=== PATIENT | female | born 1935 | race Caucasian/White ===

== ENCOUNTER 2019-03-19 14:26 | Inpatient (IN) ==
[2019-03-19] MEDS ORDERED: COLACE PO PRN (15:44)
[2019-03-19] MEDS ORDERED: NS 1,000 ML ONE (15:54)
[2019-03-19 16:02] LABS: URINE SOURCE CLEAN CATCH
--- NOTE | 2019-03-19 16:06 | Diag Imaging Result Doc PS360 ---
CHEST-PORTABLE - 03/19/2019 INDICATION: Pneumonia COMPARISON: 12/21/2018 FINDINGS: There is significant infiltrate in the right middle lobe. There is stable cardiomegaly. Pulmonary vascularity is top normal. No pneumothorax or pleural effusion. IMPRESSION: Right middle lobe pneumonia. Cardiomegaly. Electronically signed by Mikael Vigil 03/19/2019 4:03 PM
[2019-03-19 16:09] LABS: BILIRUBIN URINE NEGATIVE (NEGATIVE); BLOOD URINE NEGATIVE (NEGATIVE); COLOR YELLOW; GLUCOSE URINE NEGATIVE (NEGATIVE); KETONE URINE NEGATIVE (NEGATIVE); LEUKOCYTES URINE NEGATIVE (NEGATIVE); NITRITE URINE NEGATIVE (NEGATIVE); PROTEIN URINE 30 mg/dL (NEGATIVE); SP GRAVITY URINE 1.016; TURBIDITY URINE CLEAR (CLEAR); UROBILINOGEN URINE NORMAL (NORMAL)
[2019-03-19 16:10] LABS: UR EPITHELIAL CELLS <10 /HPF (<10); URINE BACTERIA NEGATIVE /HPF; URINE RBC <10 /HPF (<10); URINE WBC <10 /HPF (<10)
[2019-03-19] MEDS: ATROVENT NEB INH SCH ×3 (16:20→23:35)
[2019-03-19] MEDS: ALBUTEROL NEB INH SCH ×3 (16:20→23:35)
[2019-03-19 16:47] LABS: BASO# 0.02 X1000 (0.0-0.2); BASO% 0.1 % (0.0-0.8); EOS# 0.14 X1000 (0.0-0.7); EOS% 0.6 % (0.0-10.0); HEMATOCRIT 37.4 % (37.0-47.0); HEMOGLOBIN 11.3 g/dL (12.0-16.0); IMM GRAN# 0.09 X1000 (0.0-0.04); IMM GRAN% 0.4 % (0.0-0.5); LYMPH# 2.13 X1000 (1.2-3.4); LYMPH% 9.5 % (20.5-51.1); MCH 28.9 PG (27-31); MCHC 30.2 g/dL (33-37); MCV 95.7 FL (81-99); MONO% 11.2 % (1.7-9.3); MPV 12.3 FL (7.4-10.4); NEUT# 17.54 X1000 (1.4-6.5); NEUT% 78.2 % (42.2-75.2); PLT 235 X1000 (130-400); RBC 3.91 XMIL (4.2-5.4); RDW 12.8 % (11.5-14.5); WBC 22.42 X1000 (4.8-10.8)
[2019-03-19 17:02] LABS: ALB/GLOB RATIO 1.3; CREATININE 1.8 mg/dL (0.5-0.9); POTASSIUM 4.1 mmol/L (3.5-5.1); TOTAL BILIRUBIN 0.6 mg/dL (0.20-1.00)
[2019-03-19] MEDS: ZOSYN 3.375 GM in NS 50 ML IV SCH ×2 (17:09→22:29)
[2019-03-19] MEDS: NS 1,000 ML IV SCH (17:09)
[2019-03-19 17:10] LABS: BANDS 2 % (0-1); LYMPHS 18 % (21-51); MONO 4 % (1-9); SEGS 76 % (42-75)
[2019-03-19 17:11] LABS: LARGE PLATELETS 1+
--- NOTE | 2019-03-19 17:53 | EKG Report ---
Test Performed on : 03/19/2019 5:43:27 PM Test Reason : baseline EKG Blood Pressure : / mmHG Vent. Rate : 079 BPM Atrial Rate : 079 BPM P-R Int : 198 ms QRS Dur : 128 ms QT Int : 414 ms P-R-T Axes : 033 -33 -04 degrees QTc Int : 474 ms Normal sinus rhythm. Left axis deviation Right bundle branch block Minimal voltage criteria for LVH, may be normal variant Possible Lateral infarct , age undetermined Abnormal ECG When compared with ECG of 15-OCT-2017 13:45, Borderline criteria for Lateral infarct are now present No significant change was found Unconfirmed Result
[2019-03-19] MEDS: LEVAQUIN 500 MG/D5W 500 MG/100 ML IVPB IV SCH (18:03)
--- NOTE | 2019-03-19 21:05 | HISTORY AND PHYSICAL ---
PRIMARY CARE PHYSICIAN: Dr. Jono Gannon. CHIEF COMPLAINT: Cough, congestion, "I feel so bad". HISTORY OF PRESENT ILLNESS: An 84-year-old white female with a very complicated past medical history as noted presents for evaluation of above-mentioned symptoms. Current history of present illness began approximately 48 hours ago. At that time, patient developed acute onset diffuse myalgias and right-sided chest discomfort. The patient attempted to treat this symptomatically while at home, although unsuccessfully. Over the course of the last 48 hours, patient has developed profound weakness, shortness of breath above her baseline, cough productive of a purulent sputum, wheezing, and intermittent diaphoresis. She denies overt fevers, chills, dysuria, hematuria, pyuria, change in bowel movements, or sick contacts. P.o. intake has decreased. Because of her progressive symptoms, patient presented to my office for further evaluation and management. Upon arrival, white count was noted to be grossly elevated. Pulmonary examination suggested significant rhonchi in the right lower and middle lung [place]. The patient was admitted for full evaluation and management of presumed underlying pneumonia. Of note, patient states she has had increasing dysphagia over the course of the last couple weeks placing her at risk for aspiration. She denies any odynophagia, nausea, vomiting, hematochezia, or melena. PAST MEDICAL HISTORY: 1. History of multiple actinic keratoses and seborrheic keratoses. 2. Allergic rhinitis. 3. Chronic anemia. 4. History of atypical chest pain with negative evaluation in 2009. 5. Fibrocystic breast disease. 6. Right bundle branch block. 7. Status post left-sided cataract removal in 2012 and right--sided cataract removal in 2016. 8. History of a small cerebral aneurysm diagnosed in 2013. No surgical intervention has been recommended to date. 9. Chronic obstructive pulmonary disease. 10. Diverticulosis. 11. Constipation. 12. Depression. 13. History of diffuse osteoarthritis. 14. Reflux disease. 15. Hypertension. 16. Hypertriglyceridemia. 17. Hyperlipidemia. 18. Chronic hypoxia requiring nocturnal oxygen at 2 L. 19. Impaired fasting glucose. 20. History of menorrhagia status post SCOTT in her early 30s. 21. Osteopenia. 22. Postmenopausal state. 23. 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 24. History of hypothyroidism. 25. History of chronic renal disease with creatinine ranging between 1.2 and 1.5. 26. Restless legs syndrome. 27. Dementia. 28. Insomnia. 29. History of headaches . 30. History of a lumbar compression fracture status post kyphoplasty in 2008. CURRENT MEDICATIONS: 1. Abilify 2 mg daily. 2. Advair 250/50 twice daily. 3. Atorvastatin 40 mg at bedtime. 4. Azelastine 0.1% nasal solution twice daily. 5. Clonidine 0.1 mg 3 times daily as needed for systolic blood pressure greater than 160. 6. Colchicine 0.6 mg daily. 7. Coreg 12.5 mg daily. 8. Diovan 160 mg twice daily. 9. Colace 100 mg twice daily. 10. Duloxetine 60 mg daily. 11. Exelon patch 4.6 mg per 24 hours daily. 12. Fluticasone nasal spray 2 sprays each nostril daily as needed. 13. Folic acid 1 mg every other day. 14. Lasix 40 mg 1 to 2 tablets daily as needed. 15. Gabapentin 300 mg at bedtime. 16. Hydralazine 25 mg twice daily. 17. DuoNeb 3 times daily. 18. Klonopin 0.5 mg twice daily. 19. Levothyroxine 50 mcg daily. 20. Methocarbamol 750 mg 1/2 to 1 tablet 3 times daily as needed. 21. Mirapex 0.125 mg at bedtime. 22. Mirtazapine 30 mg at bedtime. 23. Namenda 10 mg twice daily. 24. Omeprazole 40 mg daily . 25. Percocet 10/325 one tablet 3 times daily. 26. ProAir HFA 1-2 puffs every 4 to 6 hours as needed. 27. Singulair 10 mg at bedtime. 28. Trazodone 100 mg at bedtime. 29. Xanax 0.25 mg 2 tablets twice daily. 30. Xarelto 20 mg daily with supper. ALLERGIES: Patient states she is allergic to Actonel which causes reflux, amlodipine/benazepril which causes edema, clonidine at high doses causes dry mouth, morphine which causes delirium, Novocain which causes tachycardia, simvastatin which causes myalgias, sulfa which causes a skin rash/hives. SOCIAL HISTORY: Patient denies tobacco, alcohol or illicit drug use. 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 She enjoys knitting and cross stitching. She exercises by walking. FAMILY HISTORY: Father passed at age 70 secondary to complications from an acute myocardial infarction. Patient's mother passed at age 81 secondary to complications of a stroke. REVIEW OF SYSTEMS: A 12 point review of systems was performed. Pertinent positives and negatives in history present illness. PHYSICAL EXAMINATION: VITAL SIGNS: Temperature 98 degrees, heart rate 79, respirations 20, blood pressure is 100/47. GENERAL: Acutely ill but no significant distress. HEENT: Normocephalic, atraumatic. Pupils equal, round, react to light. Extraocular muscles intact. Sclerae anicteric. [place] conjunctivae. Oral and nasopharynx clear without exudate. NECK: Supple. No lymphadenopathy. No thyromegaly. No bruits auscultated. CARDIOVASCULAR: Regular rate and rhythm. No significant murmurs, rubs, or gallops. PULMONARY: Rhonchi right mid and lower lung [place], occasional wheeze bilaterally. ABDOMEN: Soft, nontender, nondistended. Positive bowel sounds. EXTREMITIES: Moves all extremities well. No significant clubbing, cyanosis or edema. NEUROLOGIC: Cranial nerves 2 through 12 grossly intact. Motor and sensory grossly intact. PSYCHOLOGIC: Appropriate. LABORATORY DATA: White blood cell count 22.42, hemoglobin 11.3, hematocrit 37.4, platelet count 235,000. Sodium 135, potassium 4.1, chloride 94, bicarb 24, BUN 26, creatinine 1.8, glucose 112, calcium 9.0, total bilirubin 0.60, total protein 7.0, albumin 4.0, alkaline phosphatase 169, AST 25, ALT 13, CK total 55, troponin less than 0.010. Urinalysis revealed 30 protein. Chest x-ray reveals right middle lobe pneumonia, cardiomegaly. ASSESSMENT AND PLAN: An 84-year-old white female with a very complicated past medical history as noted presents for evaluation for profound fatigue, cough and congestion. Evaluation has revealed a right middle lobe pneumonia with associated hypotension and leukocytosis suggesting sepsis. The patient will be admitted to the CICU with close observation and aggressive management. 1. Admit PVC unit. 2. Right middle lobe pneumonia-the patient has manifest evidence of sepsis with hypotension and elevated white blood cell count. Blood cultures and sputum cultures will be drawn. We will start patient on IV fluids. We will hold all antihypertensive agents. We will initiate Zosyn and levofloxacin therapy. We will add albuterol/Atrovent every 4 hours while awake. We will follow patient's clinical course very closely. 3. Hypotension-this is most consistent with underlying sepsis associated with pneumonia. As above, blood cultures and sputum cultures will be drawn. We will start aggressive but cautious hydration. At this point, I do not feel pressor intervention is necessary. 4. Leukocytosis-as above, this is likely associated with underlying pneumonia with associated sepsis. We will treat as described above. 5. Dysphagia-this raises concern for possible aspiration. The patient will be placed on aspiration precautions. We will cover for anaerobe cover with Zosyn for possible anaerobic bacteria in the setting of aspiration. 6. Profound weakness-this is likely secondary to above. We will treat aggressively as noted. 7. Depression/dementia-patient is on a host of medications. We will continue each of these, however benzodiazepines will be held for systolic blood pressure less than 120. This will be followed. 8. Diffuse arthritis-patient is treated with Percocet as an outpatient. This will be continued, however also held for systolic blood pressure less than 120. 9. History of hypertension-all antihypertensive agents will be held for now. We will resume these once able. 10. Hyperlipidemia/hypertriglyceridemia-we will continue patient on atorvastatin therapy. 11. Chronic hypoxia-the patient is treated with oxygen 2 L at night. We will place patient on oxygen per protocol. 12. Hypercoagulable state-as above, patient has a history of a pulmonary thromboembolism and a thrombin 3 deficiency. Patient is treated with lifelong Xarelto. We will continue this. 13. Hypothyroidism-we will continue patient on replacement. 14. Acute on chronic kidney disease-baseline creatinine between 1.2 and 1.5. Creatinine today is 1.8. We will start patient on IV as noted. 15. Fluid, electrolytes, nutrition. We will monitor electrolytes. Normal saline at 50 mL an hour. Cardiac prudent diet. 16. Prophylaxis. Patient will be continued on Xarelto therapy. cc: Jono Gannon MD MTDD
[2019-03-19] MEDS: KLONOPIN PO SCH (21:08)
[2019-03-19] MEDS: ASTELIN NASAL SPRAY NAS SCH (21:08)
[2019-03-19] MEDS: NAMENDA PO SCH (21:08)
[2019-03-19] MEDS: REMERON PO SCH (21:08)
[2019-03-19] MEDS: ABILIFY PO SCH (21:08)
[2019-03-19] MEDS: LIPITOR PO SCH (21:08)
[2019-03-19] MEDS: NEURONTIN PO SCH (21:08)
[2019-03-19] MEDS: XANAX PO SCH (21:08)
[2019-03-19] MEDS: PERICOLACE PO SCH (21:08)
[2019-03-19] MEDS: MIRAPEX PO SCH (21:22)
[2019-03-20] MEDS: ATROVENT NEB INH SCH ×6 (03:35→23:00)
[2019-03-20] MEDS: ALBUTEROL NEB INH SCH ×6 (03:35→23:00)
[2019-03-20] MEDS: ZOSYN 3.375 GM in NS 50 ML IV SCH ×4 (04:37→22:05)
[2019-03-20] MEDS: PRILOSEC PO SCH (05:59)
[2019-03-20] MEDS: SYNTHROID PO SCH (05:59)
[2019-03-20] MEDS ORDERED: LEVOTHYROXINE SODIUM 50 MCG PO SCH (09:00)
[2019-03-20] MEDS ORDERED: NON-FORMULARY MED (Omeprazole 40 MG) PO SCH (09:00)
[2019-03-20] MEDS: XANAX PO SCH ×2 (09:11→22:12)
[2019-03-20] MEDS: KLONOPIN PO SCH ×2 (09:12→22:12)
[2019-03-20] MEDS: PERICOLACE PO SCH ×2 (09:14→22:03)
[2019-03-20] MEDS: CYMBALTA PO SCH (09:14)
[2019-03-20] MEDS: COLCRYS PO SCH (09:14)
[2019-03-20] MEDS: EXELON 4.6MG/24HRS TD SCH (09:14)
[2019-03-20] MEDS: NAMENDA PO SCH ×2 (09:14→22:02)
[2019-03-20] MEDS: ASTELIN NASAL SPRAY NAS SCH ×2 (09:15→23:45)
[2019-03-20] MEDS: FLONASE NAS SCH (09:15)
[2019-03-20] MEDS: COREG PO SCH (09:15)
[2019-03-20] MEDS: SINGULAIR PO SCH (09:15)
[2019-03-20] MEDS: ROBAXIN PO PRN (09:51)
[2019-03-20] MEDS: OXY IR PO PRN ×2 (10:25→19:25)
[2019-03-20] MEDS: NS 1,000 ML IV SCH ×2 (11:51→17:18)
--- NOTE | 2019-03-20 14:25 | PROGRESS NOTE ---
DATE: 03/20/2019 SUBJECTIVE: The patient was admitted yesterday with a right middle lobe pneumonia with associated sepsis. The patient was started on IV fluids and broad-spectrum antibiotics, and bronchodilators. Overnight, patient did reasonably well. The patient's blood pressure has slowly improved. Heart rate is slightly elevated this morning. Upon my arrival, patient was sitting upright in bed. Patient states that clinically, she is improved from yesterday. She continues to have a cough productive of a purulent sputum, mild shortness of breath, and some wheezing, however she does note a decrease in the severity from yesterday. She has had a low-grade temp of 99.0 degrees, but denies chills, nausea, vomiting, or chest discomfort. OBJECTIVE: T-max 99.0 degrees, heart rate 79 to 106, respirations 14 to 24, blood pressure, 96 to 127 over 47 to 59.General: Elderly, no acute distress. Cardiovascular: Slightly tachycardic. Regular rhythm. No significant murmurs, rubs, or gallops. Pulmonary: Crackles and rhonchi bilaterally, slightly improved from yesterday. Abdomen: Soft, nontender, nondistended. Positive bowel sounds. Extremities: Moves all extremities well. No significant clubbing, cyanosis, or edema. Dermatologic: Evaluation reveals no evidence of rash. LABORATORY DATA: None. ASSESSMENT AND PLAN: 1. Right middle lobe pneumonia with associated sepsis-blood cultures and sputum cultures have been drawn. The patient is being treated with IV fluids and broad-spectrum antibiotics. Overall, patient's condition is improved from yesterday. We will continue her current regimen including bronchodilators. We will encourage incentive spirometry and aspiration precautions. We will follow up sputum and blood cultures once available. 2. Hypotension-as above, this is likely a consequence of patient's pneumonia with associated sepsis. With IV fluids, patient has achieved stabilization. We will continue to hold antihypertensive agents with the exception of Coreg. 3. Leukocytosis-as above, this also is likely secondary to underlying pneumonia with associated sepsis. We will continue aggressive management as above. 4. Acute on chronic kidney disease-the patient's creatinine yesterday was 1.8, above her baseline of 1.2 to 1.5. We will continue IV fluids. We will recheck labs in the morning. 5. Dysphagia-patient has had increasing symptoms over the course of the last 2 weeks. We will continue aspiration precautions. We will remain aware. This puts patient at risk for aspiration pneumonia. We will continue IV antibiotic coverage with Zosyn for possible anaerobic bacteria. 6. Profound weakness-the patient does appear to show mild improvement today. We will encourage out of bed for all meals. We will consider whether physical therapy is necessary in the next several days. 7. Depression/anxiety-we will continue patient's home medical regimen. 8. Diffuse arthritis-patient is treated with Percocet as an outpatient. We will continue this, however we will hold for systolic blood pressure less than 120. 9. Hyperlipidemia/hypertriglyceridemia-we will continue patient's home regimen. 10. Hypercoagulable state-we will continue patient on Xarelto therapy. 11. Hypothyroidism-we will continue replacement. 12. Disposition-at this point, patient continues to require halfway care in a hospital setting. We will plan discharge home once appropriate. cc: Jono Gannon MD
[2019-03-20] MEDS: XARELTO PO SCH (17:18)
[2019-03-20] MEDS: LEVAQUIN 500 MG/D5W 500 MG/100 ML IVPB IV SCH (17:18)
[2019-03-20] MEDS: REMERON PO SCH (22:02)
[2019-03-20] MEDS: NEURONTIN PO SCH (22:03)
[2019-03-20] MEDS: ABILIFY PO SCH (22:03)
[2019-03-20] MEDS: MIRAPEX PO SCH (22:03)
[2019-03-20] MEDS: LIPITOR PO SCH (23:47)
[2019-03-21] MEDS: ALBUTEROL NEB INH SCH ×6 (03:48→22:32)
[2019-03-21] MEDS: ATROVENT NEB INH SCH ×6 (03:48→22:32)
[2019-03-21] MEDS: ZOSYN 3.375 GM in NS 50 ML IV SCH ×4 (05:01→22:25)
[2019-03-21] MEDS: SYNTHROID PO SCH ×2 (05:43→06:12)
[2019-03-21] MEDS: PRILOSEC PO SCH ×2 (05:43→06:11)
[2019-03-21 06:20] LABS: BASO# 0.01 X1000 (0.0-0.2); BASO% 0.1 % (0.0-0.8); EOS# 0.28 X1000 (0.0-0.7); EOS% 2.8 % (0.0-10.0); HEMATOCRIT 32.2 % (37.0-47.0); HEMOGLOBIN 9.6 g/dL (12.0-16.0); IMM GRAN# 0.04 X1000 (0.0-0.04); IMM GRAN% 0.4 % (0.0-0.5); LYMPH# 1.84 X1000 (1.2-3.4); LYMPH% 18.2 % (20.5-51.1); MCH 28.6 PG (27-31); MCHC 29.8 g/dL (33-37); MCV 95.8 FL (81-99); MONO# 1.19 X1000 (0.11-0.59); MONO% 11.8 % (1.7-9.3); MPV 11.7 FL (7.4-10.4); NEUT# 6.73 X1000 (1.4-6.5); NEUT% 66.7 % (42.2-75.2); PLT 211 X1000 (130-400); RBC 3.36 XMIL (4.2-5.4); RDW 12.8 % (11.5-14.5); WBC 10.09 X1000 (4.8-10.8)
--- NOTE | 2019-03-21 06:39 | EKG Report ---
Test Performed on : 03/21/2019 06:26:05 AM Test Reason : Pneumonia/ tachycardia Blood Pressure : / mmHG Vent. Rate : 082 BPM Atrial Rate : 082 BPM P-R Int : 192 ms QRS Dur : 122 ms QT Int : 400 ms P-R-T Axes : 020 -34 -11 degrees QTc Int : 467 ms Normal sinus rhythm. Left axis deviation Right bundle branch block Inferior infarct , age undetermined Abnormal ECG When compared with ECG of 19-MAR-2019 17:43, Borderline criteria for Lateral infarct are no longer present No significant change was found Unconfirmed Result
[2019-03-21 06:45] LABS: ALB/GLOB RATIO 0.8; ALBUMIN 3.1 g/dL (3.5-5.0); CREATININE 1.4 mg/dL (0.5-0.9); POTASSIUM 3.9 mmol/L (3.5-5.1); TOTAL BILIRUBIN 0.44 mg/dL (0.20-1.00); TOTAL PROTEIN 6.8 g/dL (6.3-8.3)
--- NOTE | 2019-03-21 08:10 | Diag Imaging Result Doc PS360 ---
EXAM: CHEST-2 VIEWS HISTORY: pneumonia TECHNIQUE: Two views COMPARISON: 03/19/2019 FINDINGS: The lungs are hyperexpanded. There is atelectasis and infiltrates in the right lung base. Small amount of atelectasis in the left base. Heart is mildly enlarged. No pulmonary edema. Prominent atherosclerosis. Tiny right pleural effusion. IMPRESSION: Mild worsening in the right middle lobe infiltrate and basilar atelectasis Electronically signed by Josue Mcneill 03/21/2019 8:07 AM
[2019-03-21] MEDS: SINGULAIR PO SCH (09:33)
[2019-03-21] MEDS: COLCRYS PO SCH (09:33)
[2019-03-21] MEDS: XANAX PO SCH ×2 (09:33→21:08)
[2019-03-21] MEDS: CYMBALTA PO SCH (09:34)
[2019-03-21] MEDS: COREG PO SCH (09:34)
[2019-03-21] MEDS: NAMENDA PO SCH ×2 (09:34→21:08)
[2019-03-21] MEDS: KLONOPIN PO SCH ×2 (09:35→21:07)
[2019-03-21] MEDS: PERICOLACE PO SCH ×2 (09:35→21:07)
[2019-03-21] MEDS: ASTELIN NASAL SPRAY NAS SCH ×2 (09:35→21:08)
[2019-03-21] MEDS: EXELON 4.6MG/24HRS TD SCH (09:35)
[2019-03-21] MEDS: FLONASE NAS SCH (09:36)
--- NOTE | 2019-03-21 09:59 | PROGRESS NOTE ---
DATE: 03/21/2019 SUBJECTIVE: Over the course of the last 24 hours, patient states she has done reasonably well. Energy level is improving. Cough and congestion are decreasing. Thus far, she has tolerated antibiotics and routine breathing treatments well. This morning, patient is sitting upright in her chair eating breakfast. She continues to require oxygen supplementation. She denies fevers, chills, nausea, vomiting. Right-sided chest discomfort is improving. OBJECTIVE: Vital Signs: T-max 99.9 degrees, heart rate 81 to 106, respirations 17 to 27, blood pressure 105 to 154 over 48 to 96. General: No acute distress. Cardiovascular: Regular rate and rhythm. No significant murmurs, rubs, or gallops. Pulmonary: Wheezing bilaterally, improved from previous. Rhonchi at the right base, slightly improved. Adequate air movement. Abdomen: Soft, nontender, nondistended. Positive bowel sounds. Extremities: Moves all extremities well. No significant clubbing or cyanosis. Trace lower extremity edema bilaterally. Dermatologic: Evaluation reveals no evidence of rash. LABORATORY DATA: White blood cell count 10.09, hemoglobin 9.6, hematocrit 32.2, platelet counts 211,000. Sodium 135, potassium 3.9, chloride 98, bicarb 23, BUN 20, creatinine 1.4, glucose 110, calcium 7.7, total bilirubin 0.44, total protein 6.8, albumin 3.1, alkaline phosphatase 149, AST 31, ALT 15. Chest x-ray reveals mild worsening in the right middle lobe infiltrate and basilar atelectasis. EKG this morning reveals no significant change from previous. ASSESSMENT AND PLAN: 1. Right middle lobe pneumonia with associated sepsis. Blood cultures thus far are negative. Sputum culture requires more incubation. As she is clinically improving, we will continue her current medical regimen including Zosyn, Levaquin, and bronchodilators. We will encourage incentive spirometry and aspiration precautions. While chest x-ray suggests progression, patient is clinically improving. We will follow this closely. 2. Hypotension, secondary to underlying sepsis. Patient's blood pressure has responded nicely with IV fluids and treatment as above. We will continue to follow this clinically as well. At this point, we will hold off on resuming her home medications, but may be able to do this within the next 24 hours. 3. Leukocytosis, secondary to underlying sepsis. White blood cell count has normalized. 4. Acute on chronic kidney disease. Patient's creatinine has improved from 1.8 to 1.4 approximately her baseline. As she is tolerating liquids, we will discontinue IV fluids. We will encourage hydration. 5. Dysphagia. As noted on her history and physical examination, she noted increasing symptoms over a 2 week period of time. This morning, she states she is doing reasonably well. We will continue to follow this and determine if Gastroenterology consultation is necessary as an outpatient. We will continue to encourage aspiration precautions. 6. Profound weakness. The patient continues to show improvement. She has been out of bed for all meals. We will consider physical therapy consultation in the morning depending on her progress. 7. Depression/anxiety. Symptoms are reasonably controlled with her home regimen. 8. Diffuse arthritis. The patient has continued her home medical regimen. Symptoms are controlled. 9. Hyperlipidemia/hypertriglyceridemia/hypothyroidism. We will continue patient on her home medications. 10. Hypercoagulable state. the patient has been continued on Xarelto therapy. 11. Disposition. At this point, patient continues to require [facility] care in a hospital setting. We will plan discharge home once appropriate. cc: Jono Gannon MD
[2019-03-21 13:23] LABS: CALCIUM 10.1 mg/dL (8.8-10.2)
[2019-03-21] MEDS: OXY IR PO PRN ×2 (15:31→23:55)
[2019-03-21] MEDS: XARELTO PO SCH (16:23)
[2019-03-21] MEDS: LEVAQUIN 500 MG/D5W 500 MG/100 ML IVPB IV SCH ×2 (16:24→17:50)
[2019-03-21] MEDS: ROBAXIN PO PRN ×2 (17:58→23:56)
[2019-03-21] MEDS: ABILIFY PO SCH (21:07)
[2019-03-21] MEDS: REMERON PO SCH (21:07)
[2019-03-21] MEDS: LIPITOR PO SCH (21:08)
[2019-03-21] MEDS: MIRAPEX PO SCH (21:08)
[2019-03-21] MEDS: NEURONTIN PO SCH (21:08)
[2019-03-22] MEDS: ATROVENT NEB INH SCH ×6 (03:30→23:08)
[2019-03-22] MEDS: ALBUTEROL NEB INH SCH ×6 (03:30→23:08)
[2019-03-22] MEDS: ZOSYN 3.375 GM in NS 50 ML IV SCH (04:55)
[2019-03-22] MEDS: PRILOSEC PO SCH (06:31)
[2019-03-22] MEDS: SYNTHROID PO SCH (06:32)
[2019-03-22] MEDS: ASTELIN NASAL SPRAY NAS SCH ×2 (09:32→20:00)
[2019-03-22] MEDS: FLONASE NAS SCH (09:33)
[2019-03-22] MEDS: MAXIPIME 2 GM in NS 100 ML IV SCH ×2 (09:34→19:58)
[2019-03-22] MEDS: COLCRYS PO SCH (09:35)
[2019-03-22] MEDS: CYMBALTA PO SCH (09:35)
[2019-03-22] MEDS: KLONOPIN PO SCH ×2 (09:35→19:59)
[2019-03-22] MEDS: COREG PO SCH (09:35)
[2019-03-22] MEDS: PERICOLACE PO SCH ×2 (09:35→19:59)
[2019-03-22] MEDS: NAMENDA PO SCH ×2 (09:35→19:59)
[2019-03-22] MEDS: XANAX PO SCH ×2 (09:35→19:59)
[2019-03-22] MEDS: SINGULAIR PO SCH (09:35)
[2019-03-22] MEDS: EXELON 4.6MG/24HRS TD SCH (09:35)
--- NOTE | 2019-03-22 12:29 | INFECTIOUS DISEASE CONSULT REP ---
DATE: 03/22/2019 CONCLUSION: The patient has a right middle lobe pneumonia as seen on chest x- ray. Sputum from the patient grew Pseudomonas aeruginosa, susceptible to all antibiotics, except Levaquin. RECOMMENDATIONS: I have switched the patient from Zosyn to cefepime at a dose of 2 grams IV every 12 hours. If her GFR gets to be above 50, then the dose of cefepime should be increased to 2 grams IV every 8 hours. I am going to give the patient an appointment for my office in 2 weeks, at which time the patient will be examined, and also a repeat chest x-ray will be done. I ordered a PICC and will hold 1 dose Xarelto before the PICC is inserted. Also I consulted Social Service to set up home IV cefepime. Will check patient's immunoglobulin levels. DISCUSSION: The patient tells me that approximately 3 to 4 days ago, she became weak. She started coughing and produced a yellow and brown sputum. She also had right- sided pleuritic chest pain. She did not have any shaking chills, and she does not remember having any fever. The patient's chest x-ray shows a right lung pneumonia. The CBC shows a white count of 10,090, hemoglobin is 9.6, platelet count 211,000. Creatinine is 1.4. GFR is 36. Blood cultures are negative. Swab for influenza is negative. PAST MEDICAL HISTORY/REVIEW OF SYSTEMS: Eyes and Ears: The patient has decreased vision and hearing. Neck: No stiffness. Respiratory: See present illness. Cardiac: She only has had right-sided pleuritic chest pain, but no other chest pain. GI: No nausea, vomiting, or diarrhea. : No dysuria or flank pain. Bones/Joints/Muscles: She is not complaining of any joint pain or myalgias. Neurologic: No seizures. The patient does say she has a decrease in her memory. 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 She has had a hysterectomy. PREVIOUS HOSPITALIZATIONS AND OPERATIONS: She has had 2 labor and deliveries, a hysterectomy, bilateral total knee arthroplasties. She has had surgery on both right and left ankles, and metal was placed in the joints. The patient did have a laminectomy. She had a lumbar compression fracture, which was treated with kyphoplasty. She has had cataract surgery. MEDICAL DISEASES: Positive for actinic keratoses and subareolar keratoses, allergic rhinitis, chronic anemia, fibrocystic breast disease, right bundle-branch block, cataracts, chronic obstructive pulmonary disease, diverticulosis, constipation, depression, diffuse osteoarthritis, gastroesophageal reflux disease, hypertension, hypertriglyceridemia, hyperlipidemia, chronic hypoxia, osteopenia, pulmonary thromboembolism, hypothyroidism, chronic renal disease, restless legs syndrome, and dementia. MEDICATIONS: Medicines taken at home include Abilify, Advair, atorvastatin, clonidine, colchicine, Coreg, Diovan, Colace, duloxetine, Exelon patch, Lasix, gabapentin, hydralazine, Klonopin, Synthroid, methocarbamol, Mirapex, Namenda, omeprazole, Percocet, Singulair, trazodone, Xanax, and Xarelto. ALLERGIES: The patient has drug allergies to Actonel, amlodipine/benazepril, clonidine, morphine, simvastatin, and sulfa. [place]IAL HISTORY[place] . She lives with her daughter. There are 2 dogs that live outside. She does not smoke cigarettes, drink alcoholic beverages, or abuse drugs. PHYSICAL EXAMINATION: Vital Signs: Temperature is 98 degrees, pulse 83, respirations 20, blood pressure 120/60. The patient weighs 167 pounds. She is 4 feet tall. General: This is an obese, elderly female. She is in no acute distress. HEENT: She can hear my spoken words and see near objects. I did not notice any white patches in her mouth. Neck: She moved her neck without pain. Thorax: She has dorsal kyphosis. Lungs: There were bilateral wheezes. I did not hear rales or rhonchi. Cardiovascular: Heart rate was regular. Abdomen: Soft and nontender. Neurologic: The patient is alert. She can move her extremities. She does not have a tremor. Her memory, as regarding her medical history, is decreased. There is no tremor. Integument: No rash noted. Thank you for the consult. cc: MD Jono Martinez MD MTDD
[2019-03-22 12:41] LABS: INR 1.38; PROTIME 17.2 Seconds (11.0-16.0)
[2019-03-22] MEDS: OXY IR PO PRN ×3 (13:59→23:48)
[2019-03-22] MEDS: ROBAXIN PO PRN (14:00)
[2019-03-22] MEDS: NEURONTIN PO SCH (19:59)
[2019-03-22] MEDS: LIPITOR PO SCH (19:59)
[2019-03-22] MEDS: REMERON PO SCH (19:59)
[2019-03-22] MEDS: ABILIFY PO SCH (19:59)
[2019-03-22] MEDS: MIRAPEX PO SCH (20:00)
--- NOTE | 2019-03-22 20:12 | PROGRESS NOTE ---
DATE: 03/22/2019 SUBJECTIVE: Upon my arrival this morning, the patient was in the restroom. Per report, she had a restful evening. Physical therapy was ordered. Throughout the day today, patient states she did quite well. She walked with physical therapy without incident. This evening, patient is sitting upright in her chair. She states she is ready to go home. A PICC line placement has been scheduled for tomorrow. IV antibiotics for home have been arranged. She denies fevers, chills, nausea, vomiting, or chest discomfort. Her p.o. intake is adequate. OBJECTIVE: Vital Signs: T-max 98.4 degrees, heart rate 81 to 96, respirations 19 to 26, blood pressure 115 to 171 over 57 to 69. General: In no acute distress. Cardiovascular: Regular rate and rhythm. No significant murmurs, rubs, or gallops. Pulmonary: Occasional wheezes bilaterally. Adequate air movement. Abdomen: Soft, nontender, nondistended. Positive bowel sounds. Extremities: Moves all extremities well. No significant clubbing, cyanosis, or edema. Dermatologic: Evaluation reveals no evidence of rash. LABORATORY DATA: None. ASSESSMENT AND PLAN: 1. Right middle lobe pneumonia with associated sepsis. Blood cultures returned negative. Sputum culture returned with Pseudomonas. Unfortunately, this is resistant to all oral agents. Levaquin was discontinued this morning. Zosyn was continued. Dr. Abrams with infectious diseases was consulted. IV antibiotics were transitioned to cefepime for plan to discharge home with a total of 14 days. Overall, patient's symptoms are improving. We will continue to encourage incentive spirometry and aspiration precautions. 2. Hypotension. The patient has achieved improvement with treatment of underlying infection and IV hydration. Blood pressure remains labile, but reasonably controlled without resuming her home medical regimen. We will continue to follow this while hospitalized and determine if resuming this is appropriate at discharge. 3. Leukocytosis. The patient has achieved improvement per last CBC. We will recheck labs in the morning. 4. Acute on chronic kidney disease. The patient's creatinine upon admission was 1.8. Creatinine improved to 1.4 at last laboratory draw. This is approximately her baseline. We will repeat labs in the morning. 5. Dysphagia. The patient complained of increasing symptoms over the course of 2 weeks. The patient denies significant symptoms at the present time. We will continue to follow this as an outpatient. We will continue to encourage aspiration precautions. 6. Profound weakness. The patient is achieving improvement with treatment of her underlying infection. We will continue physical therapy. 7. Depression/anxiety. Symptoms are controlled with her home regimen. 8. Diffuse osteoarthritis. We will continue the patient on her home pain medication regimen. 9. Hyperlipidemia/hypertriglyceridemia/hypothyroidism. We will continue the patient on home medications. 10. Hypercoagulable state. The patient's Xarelto will be held tonight with plans to place a PICC line tomorrow. We will resume this thereafter. 11. Disposition. At this point, the patient continues to require intermediate care in the hospital setting. We will plan discharge home once appropriate. cc: Jono Gannon MD
[2019-03-23] MEDS: ATROVENT NEB INH SCH ×4 (03:48→15:38)
[2019-03-23] MEDS: ALBUTEROL NEB INH SCH ×4 (03:48→15:38)
[2019-03-23] MEDS: OXY IR PO PRN ×2 (04:05→12:24)
[2019-03-23] MEDS: SYNTHROID PO SCH ×2 (05:30→06:37)
[2019-03-23] MEDS: PRILOSEC PO SCH ×2 (05:30→06:37)
[2019-03-23 06:28] LABS: BASO# 0.01 X1000 (0.0-0.2); BASO% 0.1 % (0.0-0.8); EOS# 0.38 X1000 (0.0-0.7); HEMATOCRIT 29.9 % (37.0-47.0); IMM GRAN# 0.04 X1000 (0.0-0.04); IMM GRAN% 0.5 % (0.0-0.5); LYMPH# 1.69 X1000 (1.2-3.4); LYMPH% 22.2 % (20.5-51.1); MCH 28.5 PG (27-31); MCHC 30.1 g/dL (33-37); MCV 94.6 FL (81-99); MONO# 0.88 X1000 (0.11-0.59); MONO% 11.6 % (1.7-9.3); MPV 11.4 FL (7.4-10.4); NEUT# 4.61 X1000 (1.4-6.5); NEUT% 60.6 % (42.2-75.2); PLT 220 X1000 (130-400); RBC 3.16 XMIL (4.2-5.4); RDW 12.4 % (11.5-14.5); WBC 7.61 X1000 (4.8-10.8)
[2019-03-23 07:11] LABS: CALCIUM 9.4 mg/dL (8.8-10.2); CREATININE 1.1 mg/dL (0.5-0.9); POTASSIUM 4.1 mmol/L (3.5-5.1)
[2019-03-23] MEDS ORDERED: NS 250 ML ONE (08:28)
--- NOTE | 2019-03-23 08:58 | INFECTIOUS DISEASE PROGRESS NO ---
DATE: 03/23/2019 PRESENT ILLNESS: The patient has a Pseudomonas pneumonia. 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 MEDICATIONS: The patient is receiving cefepime 2 grams IV every 12 hours. If her GFR gets to be above 50, then the dose of cefepime should increase to 2 grams IV every 8 hours. PHYSICAL EXAMINATION: Vital Signs: Temperature is 98.3 degrees, pulse 71, respirations 18, blood pressure 140/62. General: This is an ill-appearing, obese, elderly female. She is in no acute distress. HEENT: She can hear my spoken words and see near objects. I did not see any white coating on her tongue. Neck: She moved her neck without pain. Thorax: The patient has dorsal kyphosis. Lungs: There were rhonchi heard on the right side. The left side was clear. Cardiovascular: Heart rate is regular. Abdomen: Soft and nontender. Neurologic: The patient is alert. She can move her extremities. She does not have a tremor. IMAGING AND LABORATORY DATA: The patient's x-ray shows a right middle lobe infiltrate. The patient's CBC this morning shows a white count of 7610, hemoglobin 9, and platelet count 220,000. Creatinine is 1.1. GFR is 48. Blood cultures are negative. Swab for influenza is negative. Sputum grew Pseudomonas. Immunoglobulin levels are pending. ASSESSMENT AND PLAN: The patient is to get a peripherally-inserted central catheter placed today, and also consult has already been sent to Social Service to set the patient up at home. I have requested that the patient come to my office in 2 weeks for a followup visit, and also for a repeat chest x-ray. The results of the immunoglobulin level levels are pending at this time. COMORBIDITIES: The patient is elderly. She has chronic anemia and chronic obstructive pulmonary disease and gastroesophageal reflux disease. As mentioned above, the patient's immunoglobulin levels are pending. cc: MD Jono Martinez MD
--- NOTE | 2019-03-23 10:46 | Diag Imaging Result Doc PS360 ---
EXAM: CHEST-2 VIEWS 03/23/2019 HISTORY: pneumonia TECHNIQUE: PA and lateral chest COMMENT: There is left ventricular enlargement. There is calcification of the thoracic aorta. There is platelike and ill-defined opacity in the mid and lower lung field on the right including the right middle lobe. This has improved somewhat since the previous study of 03/21/2019 and portions of the right hemidiaphragm are now visible. There is blunting of costophrenic angles on the right which is suggestive of a pleural effusion. Atelectasis which was previously seen in the left lower lobe has resolved. There is a PICC line on the left with its tip in the superior vena cava. IMPRESSION: Improving right lower and middle lobe atelectasis and/or pneumonia. Right pleural effusion. Electronically signed by Raymundo Melendrez 03/23/2019 10:44 AM
[2019-03-23] MEDS: COREG PO SCH (10:52)
[2019-03-23] MEDS: COLCRYS PO SCH (10:52)
[2019-03-23] MEDS: KLONOPIN PO SCH (10:53)
[2019-03-23] MEDS: PERICOLACE PO SCH (10:53)
[2019-03-23] MEDS: NAMENDA PO SCH (10:53)
[2019-03-23] MEDS: XANAX PO SCH (10:54)
[2019-03-23] MEDS: SINGULAIR PO SCH (10:54)
[2019-03-23] MEDS: CYMBALTA PO SCH (10:55)
[2019-03-23] MEDS: EXELON 4.6MG/24HRS TD SCH (11:00)
[2019-03-23] MEDS: MAXIPIME 2 GM in NS 100 ML IV SCH ×2 (11:00→18:37)
[2019-03-23] MEDS: FLONASE NAS SCH (11:00)
[2019-03-23] MEDS: ASTELIN NASAL SPRAY NAS SCH (11:01)
[2019-03-23] MEDS: ROBAXIN PO PRN (12:24)
[2019-03-23 16:17] VITALS: BP 142/64
[2019-03-23] MEDS: XARELTO PO SCH (17:37)
--- NOTE | 2019-03-24 17:57 | DISCHARGE SUMMARY ---
ADMISSION DATE: 03/19/2019 DISCHARGE DATE: 03/23/2019 ADMISSION DIAGNOSES: 1. Cough. 2. Congestion. 3. "I feel so bad." DISCHARGE DIAGNOSES: 1. Right middle lobe pneumonia with associated sepsis, with sputum culture positive for pseudomonas. 2. Hypotension, resolved. 3. Leukocytosis, resolved. 4. Srola-ez-xtehwiy kidney disease, resolved. 5. Dysphagia, improved. 6. Profound weakness, improving. 7. Depression/anxiety, present on arrival. 8. Diffuse osteoarthritis, present on arrival. 9. Hyperlipidemia/hypertriglyceridemia/hypothyroidism, present on arrival. 10. Hypercoagulable state, present on arrival. CONSULTATIONS: Dr. Abrams with Infectious Diseases was consulted for further evaluation and management of pseudomonas pneumonia. PROCEDURES: 1. Chest x-ray was performed on 03/19/2019 which revealed right middle lobe pneumonia. Cardiomegaly. 2. Chest x-ray was performed on 03/21/2019 which revealed mild worsening in the right middle lobe infiltrate and basilar atelectasis. 3. Chest x-ray was performed on 03/23/2019 which revealed improving right lower and middle lobe atelectasis and/or pneumonia. Right pleural effusion. HISTORY OF PRESENT ILLNESS: For history and physical examination, see admit note. PHYSICAL EXAMINATION: Prior to discharge, temperature 98.2 degrees, heart rate 80, respirations 16, blood pressure is 142/64. General: Chronically ill appearing, no acute distress. Cardiovascular: Regular rate and rhythm. No significant murmurs, rubs or gallops. Pulmonary: Occasional wheeze bilaterally. Significantly improved air movement. Abdomen: Soft, nontender, nondistended. Positive bowel sounds. Extremities: Moves all extremities well. No significant clubbing, cyanosis or edema. Dermatologic: Evaluation reveals no evidence of rash. LABORATORY DATA: Prior to discharge, white blood cell count 7.61, hemoglobin 9.0, hematocrit 29.9, platelet count is 220,000. Sodium 143, potassium 4.1, chloride 105, bicarbonate 25, BUN 14, creatinine 1.1, glucose 100, calcium 9.4. HOSPITAL COURSE: The patient was admitted as per history and physical examination. Hospital course per condition is as follows. 1. Right middle lobe pneumonia with associated sepsis, with sputum cultures positive for pseudomonas: Upon admission, the patient was noted to have profound illness with associated cough, congestion and shortness of breath. The patient was immediately placed on Zosyn and levofloxacin therapy. Bronchodilators and incentive spirometry were encouraged. Blood cultures and sputum cultures were drawn. Blood cultures returned negative. Sputum culture returned positive for pseudomonas. Once pseudomonas diagnosis was made, Dr. Abrams was consulted. The patient was transitioned to cefepime therapy. Over the course of hospitalization, the patient's condition progressively improved. At time of discharge, the patient had adequate oxygen saturations on room air. Her energy level was improving. The patient will be discharged home, for a total of 2 weeks IV cefepime. We will continue to follow closely as an outpatient with Dr. Abrams. 2. Hypotension: Upon admission, the patient was noted to have hypotension associated with her sepsis. The patient was treated with aggressive but cautious hydration. With treatment of underlying infection, the patient's condition improved. Pressor support was not necessary. At time of discharge, the patient's blood pressure had recovered. We will resume the patient's underlying antihypertensive agents as an outpatient for systolic blood pressure greater than 130. 3. Leukocytosis: Upon admission, the patient had a significant leukocytosis secondary to her underlying infection. With treatment, her leukocytosis resolved. Again, this will be followed as an outpatient. 4. Cogoo-uh-psvckva kidney disease: The patient's creatinine upon arrival was 1.8, above her baseline of approximately 1.4. With IV hydration, the patient achieved resolution. At time of discharge, creatinine was 1.1. This will also be followed as an outpatient. 5. Anemia: Upon admission, the patient was noted to have normal hemoglobin and hematocrit. At discharge, hemoglobin and hematocrit had decreased considerably. This likely is a consequence of dilutional etiology in the setting of IV fluids. We will plan to recheck this as an outpatient as well. 6. Dysphagia: Upon admission, the patient complained of 2 weeks of dysphagia. This certainly put her at risk for aspiration. With treatment of her underlying pneumonia, her dysphagia improved considerably. We will reevaluate this as an outpatient and determine if GI consultation is appropriate. 7. Profound weakness: Upon admission, the patient was noted to be profoundly weak secondary to her underlying pneumonia and sepsis. With treatment of each, her symptoms improved. She was treated with physical therapy while hospitalized. We will continue to encourage activity as an outpatient. 8. Depression/anxiety: The patient was continued on home medications while hospitalized. 9. Diffuse osteoarthritis: The patient was continued on her home medical regimen. Symptoms remain controlled. 10. Hyperlipidemia/hypertriglyceridemia/hypothyroidism-the patient was continued on home medications while hospitalized. She tolerated this well. 11. Hypercoagulable state: The patient was continued on Xarelto therapy. DISCHARGE CONDITION: Stable. DISPOSITION: Discharged to home. MEDICATIONS: 1. Abilify 2 mg daily. 2. Advair 250/50 one puff twice daily. 3. Atorvastatin 40 mg at bedtime. 4. Azelastine nasal solution twice daily. 5. Clonidine 0.1 mg 3 times daily as needed for systolic blood pressure greater than 160. 6. Colchicine 0.6 mg daily. 7. Coreg 12.5 mg daily. 8. Diovan 160 mg twice daily. 9. Colace 100 mg twice daily. 10. Duloxetine 60 mg daily. 11. Exelon patch 4.6 mg per 24 hours applied daily. 12. Fluticasone nasal spray 2 sprays each nostril daily as needed. 13. Folic acid 1 mg every other day. 14. Lasix 40 mg 1 to 2 tablets daily as needed. 15. Gabapentin 300 mg at bedtime. 16. Hydralazine 25 mg twice daily. 17. DuoNeb 3 times daily. 18. Klonopin 0.5 mg twice daily. 19. Levothyroxine 50 mcg daily. 20. Methocarbamol 750 mg 1/2 to 1 tablet 3 times daily as needed. 21. Mirapex 0.125 mg at bedtime. 22. Mirtazapine 30 mg at bedtime. 23. Namenda 10 mg twice daily. 24. Omeprazole 40 mg daily. 25. Percocet 10/325 three times daily. 26. ProAir HFA 1 to 2 puffs every 4-6 hours as needed. 27. Singulair 10 mg at bedtime. 28. Trazodone 100 mg at bedtime. 29. Xanax 0.25 mg 2 tablets twice daily. 30. Xarelto 20 mg daily with supper. FOLLOWUP: The patient is to follow up with me in approximately 1-2 weeks. At that time, we will recheck a CBC, CMP and chest x-ray. The patient is to follow up with Dr. Abrams as arranged. cc: Jono Gannon MD
== END 2019-03-23 19:34 | disposition home health service (06) | DRG 871 ==
LOC: DIRADM 14:26 → 2N 15:25
PROVIDERS: ADMIT Internal Medicine; ATTEND Internal Medicine

== ENCOUNTER 2019-05-07 19:21 | Observation (INO) ==
--- NOTE | 2019-05-07 21:29 | Diag Imaging Result Doc PS360 ---
CT HEAD/C-SPINE W/O CONTRAST - 05/07/2019 INDICATION: Fall head injury, on blood thinners. COMPARISON: Head CT 08/15/2010 FINDINGS: Head CT: The ventricles and sulci are normal in size and contour. No intracranial mass or hemorrhage. There is mild periventricular cerebral white matter chronic microvascular ischemia. The skull is intact. There is a small left frontal scalp contusion. Cervical spine: There is exaggeration of the normal cervical lordosis. No fracture or subluxation. Vertebral body heights are preserved. Mild multilevel degenerative disc disease. There is extensive, mainly right-sided facet degeneration. IMPRESSION: 1. Left frontal scalp contusion. No intracranial injury. 2. No acute injury to the cervical spine. This exam was performed using automated exposure control, adjustment of mA or kV according to patient size, and/or use of iterative reconstruction technique Electronically signed by Mikael Vigil 05/07/2019 9:27 PM
--- NOTE | 2019-05-07 22:14 | Diag Imaging Result Doc PS360 ---
ELBOW 2 VIEWS LEFT - 05/07/2019 INDICATION: left elbow injury fall TECHNIQUE: COMPARISON: None FINDINGS: There is a mildly impacted radial head fracture. There is a large elbow joint effusion. Alignment is anatomic. IMPRESSION: Mildly impacted radial head fracture. Electronically signed by Mikael Vigil 05/07/2019 10:12 PM
--- NOTE | 2019-05-07 22:48 | PROVIDER DOCUMENTATION ---
HPI-General Adult - General Chief Complaint: Head Injury Stated Complaint: FALL/HEAD INJURY, (L) ARM PAIN Time Seen by Provider: 05/07/19 22:26 Source: patient, family Allergies/Adverse Reactions: Patient Allergies Allergy/AdvReac Type Severity Reaction Status Date / Time morphine Allergy Unknown "MAKES ME Verified 10/22/17 11:39 CRAZy" Sulfa (Sulfonamide Allergy HIVES Verified 10/22/17 11:39 Antibiotics) Home Medications: Home Medication List Medication Instructions Recorded Confirmed Last Taken Type Aripiprazole [Abilify] 2 mg PO QHS 08/11/14 10/22/17 10/21/17 History Carvedilol 12.5 mg PO QAM 08/11/14 10/22/17 10/22/17 08:00 History Clonazepam 0.5 mg PO BID 08/11/14 03/22/19 10/21/17 History Duloxetine [Cymbalta] 60 mg PO DAILY 08/11/14 10/22/17 10/22/17 08:00 History Trazodone [Desyrel] 1 tab PO HS 08/11/14 10/22/17 10/21/17 History Aspirin 81 mg PO DAILY #0 09/26/14 10/22/17 10/13/17 Rx Colchicine [Colcrys] 0.6 mg PO DAILY #0 tablet 09/26/14 10/22/17 10/22/17 08:00 Rx Furosemide [Lasix] 40 mg PO DAILY PRN PRN #0 09/26/14 10/22/17 10/22/17 08:00 Rx Alprazolam [Xanax] 0.5 mg PO BID 10/15/17 03/22/19 10/21/17 History Cetirizine [Zyrtec] 10 mg PO DAILY 10/15/17 10/22/17 10/21/17 History Clonidine [Catapres] 0.1 mg PO TID PRN PRN 10/15/17 10/22/17 10/19/17 History Memantine HCl 10 mg PO BID 10/15/17 10/22/17 10/22/17 08:00 History Methocarbamol 500 mg PO TID PRN PRN 10/15/17 10/22/17 10/21/17 History Pramipexole [Mirapex] 0.125 mg PO HS 10/15/17 10/22/17 10/21/17 History Valsartan 160 mg PO DAILY 10/15/17 10/22/17 10/21/17 History Azelastine 137 Mcg Nasal [place] 2 spray VIRGIL BID 10/22/17 10/22/17 10/22/17 08:00 History [Astelin Nasal [place]] Fluticasone/Vilanterol [Breo 1 each IH DAILY 10/22/17 10/22/17 10/22/17 08:00 History Ellipta 100-25 Mcg INH] Montelukast Sodium [Singulair] 10 mg PO DAILY 10/22/17 10/22/17 10/21/17 History Docusate Sodium [Colace] 100 mg PO BID PRN PRN capsule 10/24/17 Unknown Rx Cetirizine HCl [Zyrtec] 10 mg PO QHS #1 tablet 10/27/17 Unknown Rx Cyanocobalamin (Vitamin B-12) 1,000 mcg PO DAILY #1 tab.chew 10/27/17 Unknown Rx [Vitamin B12] Rivastigmine [Exelon 4.6MG/24Hrs] 1 each TD DAILY #1 patch 10/27/17 Unknown Rx Sennosides/Docusate Sodium 1 each PO BID tablet 10/28/17 Unknown Rx [Pericolace] ATORVAstatin [Lipitor] 40 mg PO QHS tab 03/23/19 Unknown Rx Albuterol [Albuterol Neb] 2.5 mg INH RTQ4H neb 03/23/19 Unknown Rx Cefepime in Iso-Osm Dextrose 2 gm IV Q12HR #1 frowildagy 03/23/19 Unknown Rx [Cefepime 2 gm Injection] Fluticasone 50 Mcg Nasal [place] 2 spray INTRANASAL DAILY #0 03/23/19 10/22/17 Unknown Rx [Flonase] Gabapentin [Neurontin] 300 mg PO HS cap 03/23/19 Unknown Rx Hydralazine [Apresoline] 25 mg PO BID #1 03/23/19 10/22/17 10/22/17 Rx Ipratropium [place] Neb [Atrovent 0.5 mg INH RTQ4H neb 03/23/19 Unknown Rx Neb] Levothyroxine [Synthroid] 50 microgm PO DAILY@0700 tab 03/23/19 Unknown Rx Mirtazapine [Remeron] 30 mg PO HS tab 03/23/19 Unknown Rx Omeprazole [Prilosec] 40 mg PO DAILY@0700 cap 03/23/19 Unknown Rx Oxycodone I.r. [Oxy Ir] 10 mg PO Q4H PRN PRN tab 03/23/19 Unknown Rx Polyethylene Glycol 3350 [Miralax] 17 gm PO BID PRN PRN #0 powder, 03/23/19 Unknown Rx packet Rivaroxaban [Xarelto] 20 mg PO WSUPPER tab 03/23/19 Unknown Rx - History of Present Illness -Gen Adult Nature of Presenting Problems: 84yo female presents with CC fall with injury to arm and hitting head. The patient reports that this evening she was walking with her cane and it got stuck on her pants and she fell and hit her head and hurt her arm. The patient denies any LOC or noting any blood. The patient denies any vision changes or weakness. The patient reports that she is on a blood thinner, and family believes it is Xerolto. The patient denies any pre-fall symptoms. Location of Pain/Injury: reports: upper extremity (left elbow) Onset/Duration: reports: 4-6 hours ago Timing: reports: still present Context/Activities at Onset: reports: other (recent fall due to tripping) Associated Symptoms: denies: chest pain, fever/chills, headaches, weakness Review of Systems - Adult - REVIEW OF SYSTEMS - ADULT Constitutional: reports: no symptoms reported. denies: fever Eyes: reports: no symptoms reported. denies: blurred vision Ears, Nose, Mouth & Throat: reports: no symptoms reported. denies: throat pain Cardiovascular: reports: no symptoms reported. denies: chest pain Respiratory: reports: no symptoms reported Gastrointestinal: reports: no symptoms reported. denies: abdominal pain Genitourinary: reports: no symptoms reported. denies: flank pain Musculoskeletal: reports: other (Left arm pain) Integumentary: reports: other (bruisng reported) Neurological: reports: no symptoms reported, other (no weakness). denies: headache/migraines Psychiatric: reports: no symptoms reported. denies: alcohol/drug dependence Endocrine: reports: no symptoms reported Hematologic/Lymphatic: reports: no symptoms reported, other (no bleeding) Allergic/Immunologic: reports: other (no swelling) Past History - Adult - PAST MEDICAL HISTORY-ADULT Review of Records: reports: Old Records Reviewed Cardiovascular: reports: HTN, hyperlipidemia Respiratory: reports: COPD Neurological: reports: dementia Endocrine/Immune: reports: thyroid disorder - PRIOR SURGERIES/PROCEDURES Surgical/Procedure History: reports: appendectomy, hysterectomy, orthopedic (extremity), other (cataract) - PRIOR HOSPITALIZATIONS Prior Hospitalizations: reports: for other non-related - IMMUNIZATION STATUS Childhood Immunizations: See Nurse Assessment Flu Vaccine: See Nurse Assessment - FAMILY HISTORY Family History: reviewed, not pertinent - SOCIAL HISTORY Smoking: denies Substance Use: none/never Alcohol Use Frequency: never Physical Exam-General - PHYSICAL EXAM-ADULT Initial Vital Signs Reviewed: Yes - CONSTITUTIONAL General Appearance: appears well, alert, no apparent distress - EYES Eyes: PERRL/EOMI. negative: conjuctival exudate - HEAD, EARS, NOSE, MOUTH & THROAT HENMT: moist mucous membranes, other (echymosis noted on the front of the scalp) . negative: hearing deficit, pharyngeal erythema, tonsillar exudate - NECK Neck: non-tender - RESPIRATORY Respiratory: lungs clear (mild upper airway congestion noted), no respiratory distress. negative: wheezing - CARDIOVASCULAR Cardiovascular: regular rate, rhythm, no edema - MUSCULOSKELETAL Extremity: non-tender, other (strength 5/5 in the LE, pain with movement of the LUE, LUE is neurovascularly intact.) Peripheral Pulses: radial (L): 2+ - SKIN Integumentary: normal color, warm/dry, ecchymosis (frontal scalp) - NEUROLOGIC Neurologic: net developer contract II-XII nml as tested, motor weakness (slight weakness due to pain of the LUE). negative: sensory deficit - PSYCHIATRIC Psych/Mental Status: normal mood/affect, normal thought content, normal thought process Progress - PLAN OF CARE/RESULTS Progress/Plan/Lab Results: Vital Signs - 8 hr 05/07/19 19:32 Temperature 98.3 F Pulse Rate 89 Respiratory Rate 15 Blood Pressure 146/83 O2 Sat by Pulse Oximetry 99 Orders Category Date Time Status CT HEAD/C-SPINE W/O CONTRAST [CT] Stat Exams 05/07/19 19:36 Completed ELBOW 2 VIEWS LEFT [RAD] Stat Exams 05/07/19 19:38 Completed - REASSESSMENT Reassessment #1 Status: other (CT Head with contusion, but no bleed and CT c-spine negative. Left elbow with radial fracture, non displaced. Given the patient is on a blood thinner will plan to admit for observation. Discussed with the hospitalist who has accepted the patient.) Departure - Departure Date of Disposition Decision: 05/07/19 Time of Disposition Decision: 23:07 DIAGNOSIS: Fall Qualifiers: Encounter type: initial encounter Qualified Code(s): W19.XXXA - Unspecified fall, initial encounter Head contusion Qualifiers: Encounter type: initial encounter Contusion of head detail: unspecified part of head Qualified Code(s): S00.93XA - Contusion of unspecified part of head, initial encounter Radial fracture Qualifiers: Encounter type: initial encounter Radius location: head Fracture type: closed Fracture alignment: nondisplaced Laterality: left Qualified Code(s): S52.125A - Nondisplaced fracture of head of left radius, initial encounter for closed fracture Disposition: ADMITTED INPATIENT 09 Certified Medical Emergency: Emergent Condition: Fair Referrals and Follow-Ups: Jono Gannon MD [Primary Care Provider] - - Critical Care Note This patient required my direct & personal management of CC.: No Attestation - Physician/ BONNIE Attestation Patient care was provided by Advanced Practice Provider:: No The physician spent face to face time with patient:: Yes Advanced Practice Provider documentation review:: Supervising physician onsite and consulted in the evaluation and care of this patient. The physician did have a face to face encounter with the patient.
[2019-05-07] MEDS ORDERED: PERCOCET-5 PO ONE (22:49)
[2019-05-07] MEDS ORDERED: DUONEB (A & A) INH ONE (23:54)
--- NOTE | 2019-05-08 00:29 | HISTORY AND PHYSICAL ---
ADDENDUM: Mrs. Palomo is a pleasant 84-year-old woman with hypertension, hyperlipidemia, probable COPD and atrial fibrillation, on Xarelto. She, apparently, was walking with her cane and it got caught in some part of the [place] and the patient missed her footing and fell. She did hit her forehead, but she reports that she never lost consciousness. She was unable to get up and call for assistance and she was brought to the ER. Currently, patient only has a mild headache, but she did say that she has sustained a lot of pain on her left forearm when she tried to break her fall. X-rays confirm left radial fractures. CT head was done, no acute intracranial process was noted, except for left frontal scalp contusion. The patient will be admitted, neurologic checks will be done. Because the patient is on Xarelto with a potential risk of intracranial bleeding, thus the reason why she is being kept overnight for close monitoring. Also, get Orthopedics to see the patient regarding radial fracture. In the interim, just neurologic checks, pain control overnight. My neurological exam was grossly intact. Cranial nerves were intact. Cardiovascular exam was normal. No abdominal findings. Her vital signs: Blood pressure 146/82, heart rate 89, respiration is 18, temperature is 98.3 and O2 saturation was 99% on room air. Exam also showed mild area of ecchymosis in the left frontal area and some significant tenderness on her distal left forearm. No swelling noted. cc: Nataliia Harvey MD
[2019-05-08 01:05] LABS: BASO# 0.02 X1000 (0.0-0.2); BASO% 0.1 % (0.0-0.8); EOS% 2.7 % (0.0-10.0); HEMATOCRIT 35.2 % (37.0-47.0); HEMOGLOBIN 10.6 g/dL (12.0-16.0); IMM GRAN# 0.05 X1000 (0.0-0.04); IMM GRAN% 0.3 % (0.0-0.5); LYMPH# 1.98 X1000 (1.2-3.4); LYMPH% 13.4 % (20.5-51.1); MCH 28.2 PG (27-31); MCHC 30.1 g/dL (33-37); MCV 93.6 FL (81-99); MONO# 0.83 X1000 (0.11-0.59); MONO% 5.6 % (1.7-9.3); MPV 11.9 FL (7.4-10.4); NEUT# 11.46 X1000 (1.4-6.5); NEUT% 77.9 % (42.2-75.2); PLT 201 X1000 (130-400); RBC 3.76 XMIL (4.2-5.4); RDW 12.8 % (11.5-14.5); WBC 14.74 X1000 (4.8-10.8)
[2019-05-08 01:15] LABS: INR 1.42; PROTIME 17.6 Seconds (11.0-16.0)
[2019-05-08 01:29] LABS: ALB/GLOB RATIO 1.1; ALBUMIN 3.6 g/dL (3.5-5.0); CALCIUM 9.1 mg/dL (8.8-10.2); CREATININE 1.4 mg/dL (0.5-0.9); TOTAL BILIRUBIN 0.28 mg/dL (0.20-1.00)
[2019-05-08] MEDS ORDERED: PERCOCET-5 PO ONE (01:36)
[2019-05-08] MEDS ORDERED: ZOFRAN IV PRN (02:04)
[2019-05-08] MEDS: XANAX PO PRN ×3 (03:40→22:43)
[2019-05-08 03:54] LABS: URINE SOURCE CLEAN CATCH
[2019-05-08 03:55] LABS: BILIRUBIN URINE NEGATIVE (NEGATIVE); BLOOD URINE NEGATIVE (NEGATIVE); COLOR YELLOW; GLUCOSE URINE NEGATIVE (NEGATIVE); KETONE URINE NEGATIVE (NEGATIVE); LEUKOCYTES URINE TRACE (NEGATIVE); NITRITE URINE NEGATIVE (NEGATIVE); PROTEIN URINE NEGATIVE (NEGATIVE); SP GRAVITY URINE 1.013; TURBIDITY URINE CLEAR (CLEAR); UROBILINOGEN URINE NORMAL (NORMAL)
[2019-05-08 03:57] LABS: UR EPITHELIAL CELLS <10 /HPF (<10); URINE BACTERIA NEGATIVE /HPF; URINE RBC <10 /HPF (<10); URINE WBC <10 /HPF (<10)
[2019-05-08] MEDS: DUONEB (A & A) INH SCH ×6 (04:51→22:58)
[2019-05-08] MEDS ORDERED: ALBUTEROL NEB INH SCH (05:00)
[2019-05-08] MEDS ORDERED: ATROVENT NEB INH SCH (05:00)
--- NOTE | 2019-05-08 06:00 | HISTORY AND PHYSICAL ---
PRIMARY CARE PROVIDER: Dr. Jono Gannon. DATE AND TIME: 05/07/2019 at 2315. CHIEF COMPLAINT: Fall with head injury and left arm pain. HISTORY OF PRESENT ILLNESS: Ms Palomo is an 84-year-old female who does use ambulatory assistance of a cane. She stated that this evening that she was walking with her cane and the end of her cane got tangled up in her pajama pants, which caused her to lose her balance and fall forward. The patient states she fell forward, hitting her head on the kitchen floor and did put her arms out to catch herself and since her fall has been complaining of left arm pain as well. She denied any loss of consciousness. She states she remembers everything prior to, during, and after the event. She denied any symptoms prior to the fall with any feeling dizzy, lightheaded, having chest pain, shortness of breath, weakness, any syncope or near-syncope. She states she simply got her cane caught up in her pants which caused her to fall. Except for her pain that she is reporting in her left head, her left arm pain and some soreness in her right knee, she denies any other pain or injuries. At this time, the patient is not reporting headache. She denies any dizziness. She denies any chest pain or shortness of breath. The patient does have a wet cough noted, though she states this is chronic for her. This is her usual cough, this has not worsened. She does report this is productive with yellowish colored sputum at times. She also states this is her usual as well and her sputum color or consistency has not changed. She denies any fever, body aches, or chills. She denies any abdominal pain, nausea, vomiting, or diarrhea. Her last bowel movement was this morning, 05/07/2019. She denies any hematochezia or melena. She denies any dysuria or urinary frequency. The patient does have some chronic swelling in her bilateral lower extremities for which she states is at her baseline at this time. She denies any recent" increase in swelling in her extremities. She is reporting, as previously mentioned, some right knee soreness from her fall. Upon evaluation in the ER, the patient does have approximately half-dollar sized contusion/hematoma noted to the left side of her forehead just at the hairline. There does not appear to be any open wound noted. There is no bleeding present. According to her daughter, who was at bedside, she actually stated that the swelling from the hematoma has actually improved since she 1st got to the ER. For further evaluation of her left arm pain, they did perform an x- ray of the left elbow, which did show that she had a mildly impacted radial head fracture. The fracture has already been splinted in the ER. They did place a sugar-tong splint. The patient's pulse, motor and sensory is intact distal to the splint in her left arm. She does have capillary refill that is less than 3. The patient did have a CT head and C-spine without contrast, which showed a left frontal scalp contusion though no intracranial injury. There is no acute injury to the cervical spine. The patient was reporting as previously mentioned some soreness in her right knee, though upon manipulation and bending of her knee, she reported no pain. There are a few small approximately dime size bruises noted just inferior to her patella, though there was no other obvious injury noted. The patient is alert and oriented to person, place, time, and situation. She was able to answer questions appropriately and follow commands. The patient does take Xarelto for history of pulmonary embolus. Given this, we will admit her for observation. REVIEW OF SYSTEMS: A 14-point review of systems was conducted with the patient and all were negative, except for pertinent positives mentioned in the HPI. PAST MEDICAL HISTORY: 1. History of multiple actinic keratosis and seborrheic keratoses. 2. Allergic rhinitis. 3. Chronic anemia. 4. History of atypical chest pain with negative evaluation in 2009. 5. Fibrocystic breast disease. 6. Right bundle branch block. 7. Status post left sided cataract removal in 2012 and right-sided cataract removal in 2017, 8. History of a small cerebral aneurysm diagnosed in 2013. No surgical intervention has been recommended to date. 9. Chronic obstructive pulmonary disease. 10. Diverticulosis. 11. Depression. 12. History of diffuse osteoarthritis. 13. Reflux disease. 14. Hypertension. 15. Hypertriglyceridemia. 16. Hyperlipidemia. 17. Chronic hypoxia requiring nocturnal oxygen at 2 L. 18. History of menorrhalgia, status post total abdominal hysterectomy in her early 30s. 19. Osteopenia. 20. Postmenopausal state. 21. 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 22. History of hypothyroidism. 23. History of chronic renal disease with a baseline creatinine ranging between 1.2 and 1.5. 24. Restless legs syndrome. 25. Dementia. 26. Insomnia. 27. History of headaches. 28. History of lumbar compression fracture, status post kyphoplasty in 2008. PAST SURGICAL HISTORY: 1. Bilateral knee replacements. 2. Left foot reconstruction. 3. Right ankle surgery secondary to fracture. 4. Hysterectomy. 5. Kyphoplasty for lumbar compression fractures in 2008. 6. Status post left-sided and right-sided cataract removal. SOCIAL HISTORY: The patient has no past or present tobacco, alcohol or illicit drug use history. 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 She does have hobbies of knitting and cross stitching. She does require ambulatory assistance of a cane. She does live with her daughter. Her daughter was present at bedside during my examination. FAMILY HISTORY: Her father at age 70 secondary to complications from acute myocardial infarction. The patient's mother at age 81 secondary to complications of a stroke. ALLERGIES: Patient has allergies to morphine, sulfa, Actonel, amlodipine/benazepril and simvastatin. HOME MEDICATIONS: 1. Duo neb treatment, albuterol 2.5 mg and Atrovent 0.5 mg inhaled every 4 hours. 2. Xanax 0.5 mg p.o. b.i.d. 3. Abilify 10 mg p.o. at bedtime. 4. Aspirin 81 mg p.o. daily. 5. Lipitor 40 mg p.o. at bedtime. 6. Astelin nasal spray 2 sprays nasally b.i.d. 7. Coreg 12.5 mg p.o. q.a.m. 8. Zyrtec 10 mg p.o. at bedtime. 9. Clonazepam 0.5 mg p.o. b.i.d. 10. Catapres 0.1 mg p.o. t.i.d. p.r.n. 11. Colchicine 0.6 mg p.o. daily. 12. Colace 100 mg p.o. b.i.d. p.r.n. 13. Cymbalta 60 mg p.o. daily. 14. Flonase 2 sprays intranasally daily p.r.n. 15. Lasix 40 mg p.o. daily p.r.n. 16. Neurontin 300 mg p.o. at bedtime. 17. Apresoline 25 mg p.o. b.i.d. 18. Levothyroxine 50 mcg p.o. daily. 19. Namenda 10 mg p.o. b.i.d. 20. Methocarbamol 5 mg p.o. t.i.d. p.r.n. 21. Remeron 30 mg p.o. at bedtime. 22. Singulair 10 mg p.o. at bedtime. 23. Prilosec 40 mg p.o. daily. 24. Percocet 10 mg p.o. q.8 hours p.r.n. pain. 25. MiraLAX 17 g p.o. b.i.d. p.r.n. 26. Mirapex 0.125 mg p.o. at bedtime. 27. Xarelto 20 mg p.o. with supper. 28. Exelon transdermal patch 4.6 mg/24 hours, 1 patch transdermally daily. 29. Trazodone 100 mg p.o. at bedtime. 30. Valsartan 160 mg p.o. b.i.d. DIAGNOSTIC DATA/LABORATORY RESULTS: White blood cell count is 14,740, hemoglobin 10.6, hematocrit 35.2, platelet count is 201,000. PT 17.6, INR 1.42, PTT is 43. Sodium 137, potassium 4, chloride 96, serum bicarb 27, BUN 21, creatinine 1.4 with a GFR 36. Glucose 115, calcium 9.1. Liver function tests within normal limits. Alkaline phosphatase is slightly elevated at 112. CT of the head and cervical spine without contrast showed a left frontal scalp contusion, though no intracranial injury. There was no acute injury to the cervical spine, this is per Radiology. Please see full CT report for all details findings. Left elbow x-ray did show a mildly impacted radial head fracture. There was also noted to be a large elbow joint effusion. PHYSICAL EXAMINATION: VITAL SIGNS: Temperature 97.9 degrees, heart rate 72, respirations 18, blood pressure is 145/63, oxygen saturation is 93% on room air. GENERAL: Ms. Palomo is a very pleasant, 84-year-old female, she is resting in the ER stretcher, she was in no acute distress. She was awake, alert, and able to answer questions appropriately. HEENT: The patient does have an approximately half-dollar size contusion/hematoma noted to her left forehead. This is right at the hairline. There does not appear to be any abrasion, laceration or open wound noted. There is some discoloration and hematoma as mentioned. From what I understand, according to family at bedside, the size of the hematoma has improved since her arrival to the ER. Pupils are equal, round, reactive to light, were 3 mm bilaterally and brisk. Oral mucosa is moist. Oropharynx is clear. NECK: Supple. Trachea midline. CARDIOVASCULAR: Patient has S1, S2 present. She did have what sounds to be possibly a very slight systolic murmur noted, though no other rubs or gallops present. She has a regular rate and rhythm. PULMONARY: Patient has symmetrical chest expansion bilaterally, though the patient did have expiratory wheezing and rhonchi noted in bilateral full lung ham[place]. ABDOMEN: Soft, nondistended, though she does have a protuberant abdomen noted. She was nontender upon palpation. Bowel sounds are present in all 4 quadrants, were normoactive. EXTREMITIES: No cyanosis or edema noted. The patient does have some chronic swelling in her bilateral lower extremities, though this is slight at this time. There is no edema or pitting edema present. The patient does have a sugar-tong splint noted to her left lower arm for treatment of her radial head fracture. Distal to her splint in her fingertips, she is neurovascularly intact. The patient is able to wiggle her fingers. She does have sensation intact. Capillary refill is less than 3 seconds. Radial pulse on the right upper extremity was 2+, pedal pulses were 2+ bilaterally as well. The patient did have a few small approximately dime size areas of ecchymosis noted to her right knee just inferior to the patella. She is reporting some soreness in this knee, though upon bending and manipulation, she was not reporting any pain, except for her left upper extremity, all other all other extremities were within normal limits. Pulse, motor, and sensory were intact. INTEGUMENTARY: The patient's skin is pink, warm, and dry, except for above mentioned abnormalities of a contusion hematoma to her forehead and abnormalities mentioned in the extremity exam. NEUROLOGICAL: Patient is alert and oriented to person, place, time, and situation. She is able move all extremities. There is no focal neurological deficits noted. ASSESSMENT AND PLAN: 1. Head contusion/hematoma. This is secondary from a mechanical fall from a standing position. The patient did not have any loss of consciousness, though does take anticoagulant of Xarelto. She is, at this time, not having any neurological deficits. We will admit her for observation. She will be placed on continuous cardiac telemetry as well as q.4 hours vital signs and neurological checks. We will monitor for any signs of bleeding or neurological status changes. 2. Left radial head fracture. The patient has had a sugar-tong splint placed in the ER. We have placed a consult with Dr. Zarate with Orthopedic surgery. We will await his evaluation and further recommendations for management. 3. Mechanical fall from a standing position. 4. Chronic anticoagulation use secondary to history of pulmonary embolism. Given the patient's recent fall with head contusion/hematoma. We will hold her Xarelto, at this time, as well as her aspirin for in the morning. 5. History of pulmonary embolism, on chronic anticoagulation with Xarelto. We will continue treatment as mentioned above for #4. We are holding any anticoagulants or antiplatelets, at this time, given her fall and head injury. 6. Hypertension. We have continued her Coreg and valsartan. 7. Chronic obstructive pulmonary disease and chronic hypoxia, on nocturnal oxygen at 2 L per nasal cannula. We will continue the patient's DuoNeb treatments q.4 hours. She is not displaying any respiratory distress. The patient is reporting a cough, though states this is a chronic wet cough that she has that is occasionally productive. She denies any worsening in her cough or any changes in the color and consistency of her sputum. She also denies any fever, body aches, or chills. We also will continue her nightly oxygen as well. 8. Chronic kidney disease with a previous baseline creatinine of 1.2 to 1.5. The patient, at this time, does appear to be within her baseline creatinine range with a creatinine of 1.4 at present. We will continue to monitor this, though we will avoid nephrotoxic medications and renally dose medicines as necessary. 9. Dementia. We have continued her Namenda and Exelon patch. 10. Anxiety and depression. We have continued the patient's Cymbalta, Abilify and p.r.n. Xanax, though we have held some of her other anxiety and depression medications given that she has had a recent fall with head injury. We are monitoring her neurological status. We will implement these medications back in when appropriate if the patient does not have any neurological decline. 11. Deep vein thrombosis prophylaxis will be provided with sequential compression devices. The patient has been placed on the medical floor with telemetry. She will have vital signs and neurological checks q.4 hours. We will do strict intake and output, incentive spirometry. She will be on a heart healthy diet. The patient did have a slightly elevated white blood cell count of 14,740, though she has not reported any recent illnesses. She is denying any fever, body aches, or chills. She does have a cough, though states this cough is chronic and has not worsened or changed. She is denying any dysuria. At this time, there is no known source of infection. This may be reactive secondary to her fall. We will continue to monitor. Further orders and recommendations pending hospital course, diagnostic studies, and physician evaluation. Dictated by VINNY Rico for Nataliia Harvey MD cc: MD Jono Escudero MD [facility]
[2019-05-08] MEDS: SYNTHROID PO SCH (06:08)
[2019-05-08] MEDS: PRILOSEC PO SCH (06:08)
--- NOTE | 2019-05-08 09:42 | PROGRESS NOTE ---
DATE: 05/08/2019 SUBJECTIVE: The patient states she had difficulty breathing last night. She states this morning she is much better and her breathing difficulty is only an 8/10. She has a history of chronic asthma and wheezing. In March she was treated for a bronchopneumonia, but she does not feel like she is in that bad of shape. Since the patient was actually admitted on today's date, a progress note is not necessary, but I felt the need to review her chart and treatment plan. Apparently the patient tripped over her cane and fell striking her head and fracturing her radius. She complains of a little bit of pain in her arm, but it is splinted. Orthopedic has not seen her yet. OBJECTIVE: Vital Signs: 98.4, 97, 16, 150/88, 94% saturated. Lungs: The patient does have bilateral expiratory wheezing with fair air movement. She is in no distress. Cardiovascular: Regular. Extremities: Show no peripheral edema. LABORATORIES: Reviewed. ASSESSMENT AND PLAN: 1. The patient had recent head trauma with superficial hematoma. No intracranial hemorrhage was noted. Her Eliquis has been held. 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 We will start her back on her Eliquis as soon as practical. For the time being, we will use intermittent compression hose and try and keep her in motion. Her aspirin was also held today. We will continue neurological checks. 2. The patient's history of asthma and wheezing apparently is an exacerbation. I will consider the addition of steroid. She has aerosol treatments and is not in any distress. Her oxygen saturations are adequate. It was noted that her white cell count was elevated at admission and we will recheck this tomorrow. 3. Orthopedic is scheduled to see the patient for her radial head fracture. 4. Hypertension. We will continue to monitor blood pressure. 5. The patient has chronic kidney disease. She is within her baseline creatinine. 6. Dementia. The patient appears to be functioning at baseline. 7. Her medications for anxiety, depression and dementia will be continued. cc: MD Jono Barnes MD
[2019-05-08] MEDS: COLACE PO SCH ×2 (10:28→22:43)
[2019-05-08] MEDS: EXELON 4.6MG/24HRS TD SCH (10:28)
[2019-05-08] MEDS: APRESOLINE PO SCH ×2 (10:28→22:50)
[2019-05-08] MEDS: NAMENDA PO SCH ×2 (10:30→22:46)
[2019-05-08] MEDS: DIOVAN PO SCH ×2 (10:31→22:49)
[2019-05-08] MEDS: COREG PO SCH (10:31)
[2019-05-08] MEDS: COLCRYS PO SCH (10:32)
[2019-05-08] MEDS: CYMBALTA PO SCH (10:33)
[2019-05-08] MEDS: ASTELIN NASAL SPRAY NAS SCH ×2 (10:35→22:50)
[2019-05-08] MEDS: PERCOCET-10 PO PRN ×2 (10:35→18:28)
[2019-05-08] MEDS: SOLU-MEDROL IV SCH ×2 (10:46→22:49)
--- NOTE | 2019-05-08 16:08 | ORTHOPAEDICS CONSULTATION ---
DATE: 05/08/2019 CONSULT FROM: Hospitalist service. REASON FOR CONSULTATION: Left radial neck fracture. PAST MEDICAL HISTORY: 1. Chronic anemia. 2. COPD. 3. Depression. 4. Diverticulitis. 5. Hypertension. 6. Hyperlipidemia. 7. Hypothyroidism. 8. Chronic renal disease. PAST SURGICAL HISTORY: 1. Bilateral total knee arthroplasties. 2. Left foot reconstructive surgery. 3. ORIF right ankle. 4. Hysterectomy. 5. Kyphoplasty. 6. Cataract surgery. MEDICATIONS: 1. Albuterol and Atrovent inhaler. 2. Xanax. 3. Abilify. 4. Aspirin 81 mg. 5. Lipitor. 6. Coreg. 7. Zyrtec. 8. Clonazepam. 9. Catapres. 10. Colchicine. 11. Colace. 12. Cymbalta. 13. Flonase. 14. Lasix. 15. Neurontin. 16. Apresoline. 17. Synthroid. 18. Namenda. 19. Methocarbamol. 20. Remeron. 21. Singulair. 22. Prilosec. 23. MiraLAX. 24. Xarelto. 25. Trazodone. 26. Valsartan. ALLERGIES: Patient reports allergy to morphine and sulfa. SOCIAL HISTORY: Patient lives in [place]. She is right-hand dominant. She denies any tobacco, alcohol, drug use. She ambulates with a cane. FAMILY HISTORY: Noncontributory. REVIEW OF SYSTEMS: Ten point review of systems complete and negative other than what is listed in history present illness. CHIEF COMPLAINT: Left elbow pain. HISTORY PRESENT ILLNESS: Ms. Palomo is a 84-year-old lady who sustained a same- level fall at her house yesterday. Patient states she was using her cane to ambulate when it got caught up in her pajama pants causing her to trip and fall. She states she braced herself with her right arm on the way down and hit her head. She denies any loss of consciousness. She was brought to the ER for evaluation of elbow pain as well as a large knot on her forehead. The patient denies any pain in the elbow prior to this fall. She is right-hand dominant. She has no other complaints. PHYSICAL EXAMINATION: General: Ms. Palomo is 84-year-old female appears well nourished, well developed, no acute distress. She is awake, alert, oriented x3. She is very polite and cooperative during examination. Vital Signs: Temperature 98.9 degrees Fahrenheit, heart rate 89, respiratory rate 16, blood pressure 132/68, O2 saturation 94% on room air. HEENT: Patient has some swelling and ecchymosis on the left half of her forehead from the fall. Pupils equally round and reactive to light and accommodation. Respiratory: Nonlabored breathing. Cardiovascular: Regular rate and rhythm. Extremities: Examination of left upper extremity shows sugar-tong splint to be intact in good repair. Nontender palpation around her proximal humerus, arm, wrist and hand. Motor is intact AIN, PIN, ulnar nerve distribution. Sensation intact to light touch median, radial, ulnar, axillary nerves. Radial pulse palpable and equal bilaterally. She has tenderness to palpation laterally over radial head. Skin: Intact on the arm. LABS: White count 15, hemoglobin 11, hematocrit 35, platelets 201,000. INR is 1.4. IMAGING: AP and lateral views of the left elbow were reviewed demonstrating a minimally displaced impacted radial neck fracture. She has an effusion in the elbow joint. ASSESSMENT: An 84-year-old female with left radial neck fracture. PLAN: 1. Long discussion was had with patient regarding diagnosis and treatment options. We will plan on nonoperative treatment for her fracture. Her fracture is well aligned, minimally displaced. The plan will be to keep her in this splint for about 10 to 14 days until I see her in clinic. At that time will get her out of the splint and take additional x-rays. Assuming no displacement of the fracture will then likely the let her come out of the splint and start working on elbow range of motion exercises. I told her it takes about 2 to 3 months for these to fully heal but typically by around 6 weeks they have healed enough to where can start using the arm and elbow for some light activities. All questions were answered. Patient is agreement the above plan. I gave her 1 of my business cards and told her to follow up in clinic in 10 to 14 days. 2. The patient is to be nonweightbearing left upper extremity. She can use a sling for comfort. 3. I want her to work on shoulder range of motion exercises. She can also work on gentle flexion-extension of the elbow. 4. Appreciate hospitalist recommendations. 5. Ice the left elbow PRN for pain. 6. Will continue to follow while in-house. I appreciate the consult. cc: MD SYLVIA Ren
[2019-05-08] MEDS ORDERED: LIPITOR PO SCH (21:00)
[2019-05-08] MEDS ORDERED: SINGULAIR PO SCH (21:00)
[2019-05-08] MEDS ORDERED: ZYRTEC PO SCH (21:00)
[2019-05-08] MEDS ORDERED: ABILIFY PO SCH (21:00)
[2019-05-08] MEDS ORDERED: NEURONTIN PO SCH (21:00)
[2019-05-08] MEDS ORDERED: MIRAPEX PO SCH (21:00)
[2019-05-09] MEDS: DUONEB (A & A) INH SCH ×3 (03:02→11:58)
[2019-05-09] MEDS: SYNTHROID PO SCH (07:00)
[2019-05-09] MEDS: PRILOSEC PO SCH (07:00)
[2019-05-09] MEDS: PERCOCET-10 PO PRN (07:00)
[2019-05-09 07:30] VITALS: BP 135/54
[2019-05-09] MEDS ORDERED: MIRALAX PO PRN (08:51)
[2019-05-09] MEDS ORDERED: PATIENT'S OWN MED NAS PRN (08:51)
[2019-05-09] MEDS ORDERED: LASIX PO PRN (08:51)
[2019-05-09] MEDS ORDERED: XARELTO PO ONE (08:52)
[2019-05-09] MEDS ORDERED: KLONOPIN PO SCH (09:00)
[2019-05-09] MEDS ORDERED: DEPO-MEDROL IM ONE (10:17)
[2019-05-09] MEDS: ASTELIN NASAL SPRAY NAS SCH (10:46)
[2019-05-09] MEDS: EXELON 4.6MG/24HRS TD SCH (10:47)
[2019-05-09] MEDS: COLCRYS PO SCH (10:47)
[2019-05-09] MEDS: COLACE PO SCH (10:47)
--- NOTE | 2019-05-09 10:47 | DISCHARGE SUMMARY ---
ADMISSION DATE: 05/08/2019 DISCHARGE DATE: 05/09/2019 DISCHARGE DIAGNOSES: 1. Impacted radial head fracture. 2. Fall from standing. 3. Contusion to the head. 4. Chronic obstructive pulmonary disease. 5. Chronic hypoxemia. 6. Hypertension. 7. Chronic anticoagulation secondary to history of deep venous thrombosis. HOSPITAL COURSE: This 84-year-old white female fell at home after tripping over her cane. She suffered a contusion to her head and a radial head fracture as a result of the fall. In the emergency room, she had x-rays of the forearm and elbow, which showed the fracture. She had a CT scan which showed no intracranial hemorrhage due to her chronic anticoagulation. The patient has chronic asthma and COPD. She states that she wheezes all the time. During her hospitalization, she did have wheezing, but it was unconcerning to her for most of the hospitalization. We did give her a few doses of IV steroids and aerosol treatments, and she seemed to be comfortable. Dr. Zarate was consulted and felt that she did not need any operative intervention and recommended her present splint and sling apparatus, and she will follow up with him in a couple of weeks and will determine then if there is any further interaction needed or whether she can proceed to physical therapy as this heals on its own. At the time of discharge, the patient was still wheezing. I gave her a shot of Depo-Medrol with her permission. She is aware that she can call if she develops fever or worsening productive cough or shortness of breath. The patient is on a plethora of medications. I continued all of the medications that she was on previously with no changes. She is aware that she can follow up with Dr. Gannon at any time. cc: MD Jono Barnes MD
[2019-05-09] MEDS: DIOVAN PO SCH (10:48)
[2019-05-09] MEDS: NAMENDA PO SCH (10:48)
[2019-05-09] MEDS: APRESOLINE PO SCH (10:48)
[2019-05-09] MEDS: COREG PO SCH (10:49)
[2019-05-09] MEDS: CYMBALTA PO SCH (10:49)
--- NOTE | 2019-05-09 11:55 | ORTHOPAEDICS PROGRESS NOTE ---
DATE: 05/09/2019 SUBJECTIVE: No acute events overnight. The patient is feeling better. She denies any pain in the elbow. She states her arm is comfortable in the sugar-tong splint and sling. She is tolerating a diet. OBJECTIVE: Vital Signs: Afebrile. Vital signs are stable. Extremities: Examination of the left upper extremity shows sugar-tong splint to be intact in good repair. Neurovascularly intact. Arm and forearm feel soft and compressible. Sling is in place in good position. ASSESSMENT: An 84-year-old female with a right radial neck fracture. PLAN: 1. Will continue nonoperative management for this. She should remain in a sugar-tong splint until I see her in clinic. She should use the sling when she is up ambulating. I want her to come out of the sling to work on some gentle elbow range of motion a couple times a day. 2. Ice to left elbow as needed for pain. 3. Appreciate hospitalist recommendations. 4. I will plan on seeing her back in clinic in 10 to 14 days with repeat x-rays out of the splint. At that time, we will likely discontinue the splint and allow her to start doing some elbow [id number] exercises. cc: Jono Gannon MD
[2019-05-09] MEDS ORDERED: XARELTO PO SCH (17:00)
[2019-05-09] MEDS ORDERED: REMERON PO SCH (21:00)
[2019-05-09] MEDS ORDERED: DESYREL PO SCH (21:00)
== END 2019-05-09 12:58 | disposition home or self-care (01) ==
LOC: ED 19:21 → SUATTDRO 05-08 01:36 → INTOOBSV 05-08 01:36 → 4N 05-08 01:36
PROVIDERS: ADMIT Internal Medicine; ATTEND Internal Medicine